=== PATIENT | male | born 1935 | race Caucasian/White ===

== ENCOUNTER → 2019-10-04 | Outpatient (CLI) | payer MEDICARE, BC ==
--- NOTE | 2019-10-04 14:20 | CT ---
EXAMINATION TYPE: CT lumbar spine wo con DATE OF EXAM: 10/04/2019 COMPARISON: HISTORY: LUMBAR SPINAL STENOSIS CT DLP: 506.3 mGycm CONTRAST: CT scan of the lumbar is performed , patient injected with mL of . TECHNIQUE: CT of the lumbar spine is performed on a spiral scan at 3 mm thick sections. Reconstructed images are performed in the coronal and sagittal planes. FINDINGS: T12-L1: No focal disc herniation or significant disc bulge is evident. No spinal canal stenosis or neural foraminal stenosis is present. L1-L2: No focal disc herniation or significant disc bulge is evident. No spinal canal stenosis or n eural foraminal stenosis is present L2-L3: Mild disc bulge has anterior thecal sac flattening. No AP spinal canal stenosis is present. Fa cet degenerative changes are present with ligamentum flavum laxity. Mild neural foraminal narrowing i s present. L3-L4: Broad-based disc bulge has mild anterior thecal sac flattening. No AP spinal canal stenosis is present. There is moderate bilateral foraminal narrowing due to disc bulging. Mild facet hypertrophy with ligamentum flavum laxity is present. L4-L5: Mild disc bulging has anterior thecal sac compression. No AP spinal canal stenosis is present. Moderate bilateral foraminal narrowing is present. Facet hypertrophy is present. L5-S1: No focal disc herniation or significant disc bulge is evident. No spinal canal stenosis or n eural foraminal stenosis is present Vertebral alignment appears normal. IMPRESSION: 1. Broad-based disc bulge present L2-3 through L4-5 with mild anterior thecal sac compression. No AP spinal canal stenosis present. 2. Disc bulging extending into the inferior foramen causes moderate bilateral foraminal narrowing at L4-5 and L3-4 with some milder foraminal narrowing at L2-3. Correlate with radicular symptoms. MRI ca n be performed if additional evaluation would be of benefit.
== END | disposition home or self-care (01) ==
LOC: RADCTMAIN 13:41
PROVIDERS: ATTEND Physical Medicine & Rehabilitation
DX: M48.061 Spinal stenosis, lumbar region without neurogenic claudication (principal); M51.26 Other intervertebral disc displacement, lumbar region; M41.26 Other idiopathic scoliosis, lumbar region
CPT/HCPCS: 72131

== ENCOUNTER → 2019-10-10 | Outpatient (CLI) | payer MEDICARE, BC ==
--- NOTE | 2019-10-10 15:45 | CT ---
EXAMINATION TYPE: CT cervical spine wo con DATE OF EXAM: 10/10/2019 COMPARISON: NONE HISTORY: Spondylosis without myelopathy, cervical disc degeneration both per order. Neck pain per pat ient. CT DLP: 325 mGycm. Automated Exposure Control for Dose Reduction was Utilized. TECHNIQUE: CT scan of the cervical spine is obtained without contrast, axial images are obtained, sa gittal and coronal reformatted images are also reviewed. FINDINGS: Coronal images show dextroconvex scoliotic curvature positioning centered in the upper thor acic spine. Sagittal images show satisfactory alignment. Vertebral body heights are maintained. Moder ate disc space narrowing C3-C4 level is present. Moderate disc space narrowing C5-C6 level and mild t o moderate disc space narrowing C6-C7 levels. Mild multilevel anterior spurring. Axial images at C2-C3 level show bilateral vertebral facet degenerative changes causing asymmetric mi ld left-sided neural foraminal narrowing. Axial images at C3-C4 level show posterior spur disc complex effacing anterior thecal sac with uncove rtebral facet degenerative changes bilaterally, they are significantly more prominent and advanced on the right with advanced right-sided neural foraminal narrowing, there is mild to moderate left-sided neural foraminal narrowing noted. Axial images at C4-C5 level show uncovertebral facet degenerative changes bilaterally greater on the right with moderate to severe right greater than left bilateral neural foraminal narrowing. Axial images at C5-C6 level show posterior spur disc complex effacing anterior thecal sac and uncover tebral facet degenerative changes bilaterally causing moderate bilateral neural foraminal narrowing. Axial images at C6-C7 level show posterior spur disc complex effacing the anterior thecal sac along w ith uncovertebral and facet spurring causing moderate left and mild right-sided neural foraminal narr owing. Axial images at C7-T1 level are felt within normal limits. Osseous structures are overall somewhat de mineralized. Mild biapical pleural/parenchyma scarring is seen. There is additional pleural thickening in the visu alized right lung apex. Thyroid gland is normal in size. Moderate calcified plaque bilateral carotid bulb level extends into the proximal internal carotid arteries. Patchy soft tissue density bilateral extra auditory canals is felt to reflect cerumen. IMPRESSION: Multilevel degenerative changes as detailed above most prominent at C3-C4 through the C6- C7 levels.
== END | disposition home or self-care (01) ==
LOC: RADCTMAIN 15:08
PROVIDERS: ATTEND Physical Medicine & Rehabilitation
DX: M47.812 Spondylosis without myelopathy or radiculopathy, cervical region (principal)
CPT/HCPCS: 72125